=== PATIENT | male | born 1985 | race Caucasian/White ===

== ENCOUNTER 2024-01-29 12:50 | Outpatient (CLI) | payer OTHER, SELFPAY | END 2024-01-29 12:51 | disposition home or self-care (01) | PROVIDERS: PCP Family Medicine; Visit Provider Family Medicine | DX: R10.9 Unspecified abdominal pain (principal) | CPT/HCPCS: 80053; 80061; 83690 ==

== ENCOUNTER 2024-02-06 07:23 | Outpatient (CLI) | payer OTHER, SELFPAY ==
--- NOTE | 2024-02-06 08:00 | CT_ITS ---
Patient: KINDRA CASSIDY Facility:?[facility] Patient ID:?[id number] Site Patient ID:?[id number] Site :?[id number] Study:?CT-Abdomen/Pelvis W/ 101CC ISOVUE 370-02/06/2024 8:03:24 AM Ordering Physician:HEENA Final Report: INDICATION: Abdominal pain TECHNIQUE: Axial images were obtained from the diaphragm to the pubic symphysis. Reformats were obtained in the coronal and sagittal plane. IV Contrast: 101 cc Isovue 370 Oral Contrast: None COMPARISON: None. FINDINGS: Lower chest: Unremarkable. Liver: Unremarkable. Normal in size and attenuation. No masses. Gallbladder and bile ducts: Unremarkable. No stones or inflammation. No biliary dilatation. Spleen: Unremarkable. Normal in size without mass. Pancreas: Unremarkable. No mass or inflammation. Adrenal glands: Unremarkable. No nodules. Kidneys: Unremarkable. No masses, stones, or hydronephrosis. Vasculature: Unremarkable. GI tract: The stomach is unremarkable. No dilated loops of large or small intestine. Moderate amount of stools in the colon. Appendix is unremarkable. Pelvis: Unremarkable. Bones: Degenerative disc disease L4-5 and L5-S1 with spondylolysis at L5 and 21 millimeter anterolisthesis of L5 on S1 IMPRESSION: 1. No dilated bowel or localized inflammation. 2. Spondylolysis at L5 with grade 2 anterolisthesis of L5 on S1 Please note that all CT scans at this facility use dose modulation, iterative reconstruction, and/or weight-based dosing when appropriate to reduce radiation dose to as low as reasonably achievable. Dictated by Monty He MD @ 02/06/2024 8:12:33 AM Signed by:?Monty He MD @02/06/2024 8:12:33 AM (Electronic Signature)
== END 2024-02-06 07:24 | disposition home or self-care (01) ==
LOC: CT 07:25
PROVIDERS: PCP Family Medicine; Visit Provider Family Medicine
DX: R10.9 Unspecified abdominal pain (principal); M47.896 Other spondylosis, lumbar region
CPT/HCPCS: 74177; Q9967

== ENCOUNTER 2024-04-13 13:46 | Emergency (ER) | payer OTHER, SELFPAY ==
[2024-04-13 13:55] VITALS: BP 143/90; PULSE 57; RESP 18; TEMP 36.5; O2SAT 97; BMI 24.3
--- NOTE | 2024-04-13 14:09 | CRLHL7_ITS ---
For Patients: As a result of the Century Cures Act, medical imaging exams and procedure reports are released immediately into your electronic medical record. You may view this report before your referring provider. If you have questions, please contact your health care provider. INDICATION: Intermittent LT chest wall and upper LT side pain that radiates to back, dizzy, nauseated, more painful after eating. Patient states he was driving about 1100 this AM and almost passed out. TECHNIQUE: CT chest, abdomen and pelvis acquired with 100 milliliters of Isovue 370 IV contrast. COMPARISON: February 06, 2024 FINDINGS: CHEST: Cardiovascular structures: Heart size is normal. Thoracic aorta and main pulmonary artery are normal in caliber. Mediastinum and paulo: No mass or adenopathy. Lungs and pleura: Lungs and pleural spaces are clear. No suspicious nodules, infiltrates, or effusions. Chest wall and axilla: No mass or adenopathy. Bones: No suspicious bone lesions. Unremarkable for age. ABDOMEN AND PELVIS: Liver: Unremarkable. Gallbladder and bile ducts: Gallbladder is collapsed. No radiopaque gallstones identified. No intra or extrahepatic biliary ductal dilatation. Pancreas: Unremarkable. Spleen: Unremarkable. Adrenal glands: Unremarkable. Kidneys: Unremarkable. GI tract: No bowel obstruction. Appendix is within normal limits. Vascular structures: Unremarkable. Lymph nodes: Unremarkable. Miscellaneous: Unremarkable. No free air or significant free fluid. Pelvic Organs: Unremarkable. Bones: Redemonstrated bilateral L5 spondylolysis. Grade 2 anterolisthesis of L5 on S1 with resulting neural foraminal narrowing bilaterally at this level. IMPRESSION: 1. no acute process in the chest, abdomen or pelvis. 2. Stable grade 2 anterolisthesis of L5 on S1. Please note that all CT scans at this facility use dose modulation, iterative reconstruction, and/or weight-based dosing when appropriate to reduce radiation dose to as low as reasonably achievable. Dictated by Юлия Abebe MD @ 04/13/2024 3:29:27 PM (Electronically Signed)
--- NOTE | 2024-04-13 14:15 | ED_ITS ---
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 He got home and felt better he talked to his and they decided to come to the ER for evaluation. He had similar symptoms a couple months ago and he had a CT scan of his abdomen pelvis that was unremarkable. He has had some low lab work that is been unremarkable. He has recently undergone some physical therapy for a lumbar spondylolisthesis that he is doing very well with his back pain is pretty much resolved. 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 He does report sometimes some discomfort that increases in his left side when he eats. He has tried some Prilosec and that has not helped a whole lot. He does report that he drank about 6 beers last night. He has been not drinking due to his stomach upset. Symptoms seem worse today. He does not drive describe central chest discomfort like esophagitis. Dr. Rodriguez has referred him to GI for colonoscopy and probably EGD. He has appoint with them next week. Related Data Previous Rx's ?Medication ?Instructions ?Recorded celecoxib 200 mg capsule (Celebrex) 200 mg PO DAILY 7 days #14 caps 04/13/24 omeprazole 20 mg capsule,delayed 20 mg PO DAILY #14 caps 04/13/24 release Allergies Allergy/AdvReac Type Severity Reaction Status Date / Time amoxicillin Allergy Intermediate Rash Verified 04/13/24 15:16 Review of Systems Status of ROS: Reports: 6 or more systems reviewed and unremarkable except as noted in History and below PFSH PFS Social History Smoking Status: Former smoker What tobacco products do you use: cigarettes Smoking quit date/years: <= 15 years ago Do you use any of these nicotine containing products: None Second hand tobacco smoke exposure: No How often do you have a drink containing alcohol: 4 or more times a week How many standard drinks containing alcohol do you have on a typical day: 7 to 9 How often do you have six or more drinks on one occasion: Weekly AUDIT-C Alcohol total score: 10 Non-prescribed substance use: denies use Little interest or pleasure in doing things: not at all Feeling down, depressed, or hopeless: not at all Exam Narrative: Exam Narrative: Objective: Patient's vital signs look within normal limits He is alert or x3 noncyanotic He is cooperative pleasant His lungs are clear There is some mild costochondral tenderness along the lower left ribcage area. Abdomen is benign no masses no swelling no prominent aortic pulsation Bowel sounds normoactive Extremities no within normal limits, good perfusion, normal strength sensation He denies back pain Const: Vital Signs, click to edit/add: Vital Signs - 24 hr 04/13/24 13:55 04/13/24 14:24 04/13/24 15:45 Temperature 97.7 F Pulse Rate [Pulse Oximeter] 57 L 57 L Respiratory Rate 18 16 Blood Pressure [Ri ght Upper Arm] 143/90 H 115/67 Pulse Oximetry 97 98 97 Oxygen Delivery Me thod Room Air Room Air Course Vital Signs Vital signs: Initial Vital Signs Temperature 97.7 F 04/13/24 13:55 Temperature Source Temporal Artery Scan 04/13/24 13:55 Pulse Rate 57 L 04/13/24 13:55 Pulse Rhythm Regular 04/13/24 13:55 Respiratory Rate 18 04/13/24 13:55 Blood Pressure 143/90 H 04/13/24 13:55 Blood Pressure Mean 107 H 04/13/24 13:55 Blood Pressure Position Sitting 04/13/24 13:55 Pulse Oximetry 97 04/13/24 13:55 Oxygen Delivery Method Room Air 04/13/24 13:55 Vital Signs Temperature 97.7 F 04/13/24 13:55 Pulse Rate 57 L 04/13/24 13:55 Respiratory Rate 18 04/13/24 13:55 Blood Pressure 143/90 H 04/13/24 13:55 Pulse Oximetry 97 04/13/24 13:55 Oxygen Delivery Method Room Air 04/13/24 13:55 Temperature 97.7 F 04/13/24 13:55 Pulse Rate 57 L 04/13/24 15:45 Respiratory Rate 16 04/13/24 15:45 Blood Pressure 115/67 04/13/24 15:45 Pulse Oximetry 97 04/13/24 15:45 Oxygen Delivery Method Room Air 04/13/24 15:45 Medications Administered Medications: Discontinued Medications Generic Name Dose Route Start Last Admin Trade Name Harry RDZ Reason Stop Dose Admin Aspirin 324 mg 04/13/24 14:09 04/13/24 14:30 Aspirin 81 Mg Tab.Chew PO 04/13/24 14:10 324 mg ONCE ONE Administration Medical Decision Making MDM Narrative Medical decision making narrative: 38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 Symptoms have resolved now. He felt a little diaphoretic during this episode. This does not sound like coronary disease but I think an EKG and a troponin be appropriate, would also check as CT scan of his chest and abdomen given this has been recurrent over about 3 months. Does not sound like it is related to his back pain that he was having earlier. Will also check electrolytes labs make sure does not have any evidence of pancreatitis given his alcohol intake last night. If his CT scan of chest/abdomen/pelvis are unremarkable, and labs return normal. I think continuing the omeprazole and following up with GI would be the appropriate course of action, avoidance of alcohol. Please see addendum dictation. Will also get laboratory studies. Addendum 3:37 p.m.: The patient is EKG shows sinus bradycardia by my read no acute ST T wave changes, his chest abdomen pelvis CT is again unremarkable. His laboratory studies look reassuring, his troponin is 0, hemoglobin and white count normal his ER profile is largely unremarkable LFTs normal. I would have him continue his omeprazole, avoid alcohol, and continue with his GI planned follow-up. Recheck with primary care within the next week or so, would recommend follow up GI as planned. Return to ED as needed. I think it is also reasonable for him given this seems like a chest wall discomfort rather than GI says problem, to continue omeprazole but also try the Celebrex that was prescribed for him for his back 1 a day for the next week to see if it would relieve some of his symptoms. Lab Data Labs: Lab Results 04/13/24 04/13/24 Range/Units 14:23 14:42 WBC 7.61 (4.50-11.00) K/uL RBC 4.68 (4.30-5.90) m/uL Hgb 13.4 L (13.5-17.5) gm/dL Hct 40.8 (37.0-53.0) % MCV 87 (80-100) fL MCH 29 (26-34) pg MCHC 33 (32-36) gm/dL RDW Coeff of Ashley 12.6 (11.5-15.5) % Plt Count 259 (140-440) K/uL Neut % (Auto) 58.3 (42.0-72.0) % Lymph % (Auto) 33.2 (20-44) % [place] % (Auto) 7.0 (0.0-11.0) % Eos % (Auto) 0.4 (0.0-7.0) % Baso % (Auto) 0.4 (0.0-3.0) % Neut # (Auto) 4.44 (1.7-7.0) K/uL Lymph # (Auto) 2.53 (0.90-2.90) K/uL [place] # (Auto) 0.50 (0.00-0.90) K/UL Eos # (Auto) 0.03 (0.00-0.50) K/uL Baso # (Auto) 0.03 (0.00-0.30) K/uL Abs Immat Gran (auto) 0.05 (0.00-0.30) K/uL Imm/Tot Granulo (auto) 0.7 % Sodium 136 (135-149) mmol/L Potassium 4.1 (3.6-5.1) mmol/L Chloride 103 (96-114) mmol/L Carbon Dioxide 28 (20-32) mmol/L Anion Gap 5 L (7-15) mEq/L BUN 21 (5-24) mg/dL Creatinine 1.0 (0.5-1.5) mg/dL Estimated Creat Clear 124.99 Estimated GFR 98 ml/min Glucose 83 (60-115) mg/dL Calcium 8.4 (8.4-10.6) mg/dL Total Bilirubin 0.7 (0.1-1.5) mg/dL Direct Bilirubin 0.4 (0.0-0.5) mg/dL AST 37 H (12-35) U/L ALT 33 (4-50) U/L Alkaline Phosphatase 67 (40-150) U/L C-Reactive Protein < 0.5 L (0.5-1.0) mg/dL Total Protein 6.9 (6.0-8.3) g/dL Albumin 4.3 (3.3-5.0) g/dL Lipase 106 (23-300) U/L POC Troponin I 0.00 L (0.01-0.04) ng/ml Discharge Plan Discharge Clinical Impression: Left-sided chest wall pain Patient Disposition: Home, Self-Care Condition: Stable Additional Instructions: Light activity for 48 hours, recheck with GI as planned, continue omeprazole for stomach upset, avoid alcohol, drink lots of fluids. Would recommend recheck with your regular doctor after her GI appointment. Could also try the Celebrex 1 daily for the next week Activity Level: Light activity Discharge Diet: Regular Prescriptions: New omeprazole 20 mg capsule,delayed release(DR/EC) 20 mg PO DAILY Qty: 14 2RF celecoxib [Celebrex] 200 mg capsule 200 mg PO DAILY 7 Days Qty: 14 0RF Follow Up/Referrals: Nilson Bourgeois MD [Primary Care Provider] - Stand Alone Forms: [employer] Info Instructions
[2024-04-13 14:24] VITALS: O2SAT 98
[2024-04-13] MEDS: ASPIRIN 81 MG TAB.CHEW 324 MG PO (14:30)
[2024-04-13 14:44] LABS: Basophils Absolute Auto 0.03 K/uL (0.00-0.30); Basophils Percent Auto 0.4 % (0.0-3.0); Eosinophils Absolute Auto 0.03 K/uL (0.00-0.50); Eosinophils Percent Auto 0.4 % (0.0-7.0); Hematocrit 40.8 % (37.0-53.0); Hemoglobin* 13.4 gm/dL (13.5-17.5); Immature Granulocytes Abs Auto 0.05 K/uL (0.00-0.30); Immature Granulocytes Pct Auto 0.7 %; Lymphocytes Absolute Auto 2.53 K/uL (0.90-2.90); Lymphocytes Percent Auto 33.2 % (20-44); Mean Corpuscular HGB Conc 33 gm/dL (32-36); Mean Corpuscular Hemoglobin 29 pg (26-34); Mean Corpuscular Volume 87 fL (80-100); Neutrophils Absolute Auto 4.44 K/uL (1.7-7.0); Neutrophils Percent Auto 58.3 % (42.0-72.0); Platelet Count* 259 K/uL (140-440); RDW Coefficient of Variation % 12.6 % (11.5-15.5); Red Blood Count 4.68 m/uL (4.30-5.90); White Blood Count* 7.61 K/uL (4.50-11.00)
[2024-04-13 14:47] LABS: Slide Review Reflex No
[2024-04-13 14:57] LABS: Albumin* 4.3 g/dL (3.3-5.0); Chloride* 103 mmol/L (96-114); Sodium* 136 mmol/L (135-149)
[2024-04-13 14:58] LABS: Potassium* 4.1 mmol/L (3.6-5.1)
[2024-04-13 15:01] LABS: Alanine Aminotransferase* 33 U/L (4-50); Alkaline Phosphatase* 67 U/L (40-150); Anion Gap 5 mEq/L (7-15); Aspartate Amino Transferase* 37 U/L (12-35); Bilirubin Direct* 0.4 mg/dL (0.0-0.5); Bilirubin Total* 0.7 mg/dL (0.1-1.5); Blood Urea Nitrogen* 21 mg/dL (5-24); Calcium* 8.4 mg/dL (8.4-10.6); Carbon Dioxide* 28 mmol/L (20-32); Est. Creatinine Clearance* 124.99; Estimated Glomerular Filt Rate 98 ml/min; Glucose* 83 mg/dL (60-115); Lipase* 106 U/L (23-300); Total Protein* 6.9 g/dL (6.0-8.3)
[2024-04-13 15:04] LABS: C Reactive Protein* < 0.5 mg/dL (0.5-1.0)
[2024-04-13 15:45] VITALS: BP 115/67; PULSE 57; RESP 16; O2SAT 97
== END 2024-04-13 15:46 | disposition home or self-care (01) ==
PROVIDERS: Emergency Provider Family Medicine; PCP Family Medicine
DX: R07.89 Other chest pain (principal)
CPT/HCPCS: 36415; 71260; 74177; 80048; 80076; 83690; 84484; 85025; 86140; 93005; 94761; 99283; 99285; A9270; Q9967

== ENCOUNTER 2024-04-29 14:30 | Outpatient (RCR) | payer OTHER, SELFPAY | END 2024-07-30 11:40 | disposition home or self-care (01) | PROVIDERS: PCP Family Medicine; Visit Provider Family Medicine | DX: M43.10 Spondylolisthesis, site unspecified (principal); Z51.89 Encounter for other specified aftercare | CPT/HCPCS: 97110; 97140; 97161 ==

== ENCOUNTER 2024-07-28 08:40 | Emergency (ER) | payer OTHER, SELFPAY ==
[2024-07-28 08:48] VITALS: BP 123/89; PULSE 69; RESP 20; TEMP 36.7; O2SAT 97; BMI 23.7
--- NOTE | 2024-07-28 08:55 | ED_ITS ---
HPI - General Adult General Time Seen by Provider: 08:55 Chief complaint: Abdominal Pain Stated complaint: back/stomach x 3 days Time Seen by Provider: 07/28/24 08:42 History of Present Illness HPI narrative: Chavez is a 39-year-old male with spondylolisthesis, presents emerged department via private car and self with lower back pain and abdominal pain. Patient states he has had this in the past, he would was evaluated for it in the emergency department and had imaging done at that time, they showed spondylolisthesis, was discharged with some anti-inflammatory medication and improved, he says that since last Sunday. Pain is lower lumbar area bilatera l, no radiation down the legs, denies any urinary bowel incontinence or retention. Patient states he has a little bit tingling when he urinates, denies any blood in the urine. The lower abdominal pain is crampy in nature left- sided. Associated nausea but no vomiting denies any diarrhea but had some blood in the stool last week when he wiped, bright red. No history of any hemorrhoids. Denies any chest pain or shortness of breath. No recent injury, however he did sleep around 10 hours yesterday. No fevers or chills. Pain is 6/10. Patient did not take anything for the pain, patient states he has had a lot of anxiety recently which could be contributing, with work and at home. Patient was seen by [facility] they recommended no upper endoscopy or colonoscopy at that time. Patient has had a CT abdomen pelvis with IV contrast last April which was normal. Related Data Previous Rx's ?Medication ?Instructions ?Recorded diazepam 5 mg tablet (Valium) 5 mg PO Q8H PRN #7 tabs 07/28/24 naproxen 500 mg tablet 500 mg PO BID #14 tabs 07/28/24 Allergies Allergy/AdvReac Type Severity Reaction Status Date / Time amoxicillin Allergy Intermediate Rash Verified 07/28/24 08:55 Review of Systems Status of ROS: Reports: 10 or more systems reviewed and unremarkable except as noted in History and below PFSH PFS Social History Smoking Status: Former smoker What tobacco products do you use: cigarettes Smoking quit date/years: <= 15 years ago Do you use any of these nicotine containing products: None Second hand tobacco smoke exposure: No How often do you have a drink containing alcohol: 4 or more times a week How many standard drinks containing alcohol do you have on a typical day: 7 to 9 How often do you have six or more drinks on one occasion: Weekly AUDIT-C Alcohol total score: 10 Non-prescribed substance use: denies use Little interest or pleasure in doing things: not at all Feeling down, depressed, or hopeless: not at all Exam Narrative: Exam Narrative: General: No obvious distress lying comfortably HEENT: Pupils equal round reactive to light, extraocular muscles intact Lungs: Clear to auscultation bilaterally Chest: Normal sinus rhythm S1-S2 Abdomen: Soft, nontender to palpation bowel sounds positive Muscle skeletal: Mild tenderness to palpation the lower lumbar paraspinal musculature, no midline tenderness step-offs, straight leg raise and crossover negative at 20? Neuro: GCS 15 Const: Vital Signs, click to edit/add: Vital Signs - 24 hr 07/28/24 08:48 Temperature 98.1 F Pulse Rate [Right Pulse Oximeter] 69 Respiratory Rate 20 Blood Pressure [Ri ght Upper Arm] 123/89 Pulse Oximetry 97 Oxygen Delivery Me thod Room Air Course Course ED Course: 8:45 AM: AIDET performed, workup will include IV peripheral, 0.9 normal saline bolus, 15 mg IV Toradol, will obtain CBC, CMP, lipase, CRP and urinalysis. Differential includes but not limited to appendicitis, aortic aneurysm, mesentery ischemia, bowel perforation or obstruction, other considerations are anxiety, GERD, diverticulitis, pyelonephritis, UTI, urolithiasis, as well as all etiologies. Symptoms seem more related to anxiety, will await for labs results to see if further imaging will be obtained. Reevaluation(s) Time of Reevaluation #1: 10:17 Reevaluation #1: CBC showed no leukocytosis, no anemia, comprehensive metabolic panel showed normal electrolytes and renal function, LFTs, urinalysis was unremarkable, CRP was negative, patient was given additional 2.5 mg IV Valium for his lower back spasms and anxiety as symptoms improve, discussed further imaging but will hold at this time, the patient has had recent CT scans which were unremarkable, will plan to treat symptomatically have a follow-up with primary care provider over the next 7-10 days. Return precautions given. Vital Signs Vital signs: Initial Vital Signs Temperature 98.1 F 09/23/24 08:48 Temperature Source Temporal Artery Scan 07/28/24 08:48 Pulse Rate 69 07/28/24 08:48 Pulse Rhythm Regular 07/28/24 08:48 Respiratory Rate 20 07/28/24 08:48 Blood Pressure 123/89 07/28/24 08:48 Blood Pressure Mean 100 07/28/24 08:48 Blood Pressure Position Sitting 07/28/24 08:48 Pulse Oximetry 97 07/28/24 08:48 Oxygen Delivery Method Room Air 07/28/24 08:48 Vital Signs Temperature 98.1 F 07/28/24 08:48 Pulse Rate 69 07/28/24 08:48 Respiratory Rate 20 07/28/24 08:48 Blood Pressure 123/89 07/28/24 08:48 Pulse Oximetry 97 07/28/24 08:48 Oxygen Delivery Method Room Air 07/28/24 08:48 Temperature 98.1 F 07/28/24 08:48 Pulse Rate 69 07/28/24 08:48 Respiratory Rate 20 07/28/24 08:48 Blood Pressure 123/89 07/28/24 08:48 Pulse Oximetry 97 07/28/24 08:48 Oxygen Delivery Method Room Air 07/28/24 08:48 Medications Administered Medications: Discontinued Medications Generic Name Dose Route Start Last Admin Trade Name Harry PRN Reason Stop Dose Admin Diazepam 2.5 mg 07/28/24 09:49 07/28/24 09:58 Diazepam 5 Mg/Ml Inj IV 07/28/24 09:50 2.5 mg ONCE ONE Administration Sodium Chloride 1,000 mls @ 1,000 mls/hr 07/28/24 08:54 07/28/24 10:06 0.9 % Sodium Chloride 1000 Ml IV 07/28/24 09:53 Infused .Q1H VU Infusion Ketorolac Tromethamine 15 mg 07/28/24 08:54 07/28/24 09:10 Ketorolac 15 Mg/Ml Inj IVP 07/28/24 08:55 15 mg ONCE ONE Administration Medical Decision Making Lab Data Labs: Lab Results 07/28/24 07/28/24 Range/Units 08:42 09:10 WBC 5.47 (4.50-11.00) K/uL RBC 5.10 (4.30-5.90) m/uL Hgb 14.7 (13.5-17.5) gm/dL Hct 44.5 (37.0-53.0) % MCV 87 (80-100) fL MCH 29 (26-34) pg MCHC 33 (32-36) gm/dL RDW Coeff of Ashley 12.3 (11.5-15.5) % Plt Count 240 (140-440) K/uL Neut % (Auto) 43.9 (42.0-72.0) % Lymph % (Auto) 46.4 H (20-44) % Giles % (Auto) 8.6 (0.0-11.0) % Eos % (Auto) 0.5 (0.0-7.0) % Baso % (Auto) 0.4 (0.0-3.0) % Neut # (Auto) 2.40 (1.7-7.0) K/uL Lymph # (Auto) 2.50 (0.90-2.90) K/uL Giles # (Auto) 0.50 (0.00-0.90) K/UL Eos # (Auto) 0.03 (0.00-0.50) K/uL Baso # (Auto) 0.02 (0.00-0.30) K/uL Abs Immat Gran (auto) 0.01 (0.00-0.30) K/uL Imm/Tot Granulo (auto) 0.2 % Sodium 138 (135-149) mmol/L Potassium 3.8 (3.6-5.1) mmol/L Chloride 102 (96-114) mmol/L Carbon Dioxide 26 (20-32) mmol/L Anion Gap 10 (7-15) mEq/L BUN 9 (5-24) mg/dL Creatinine 0.8 (0.5-1.5) mg/dL Estimated Creat Clear 154.69 Estimated GFR 115 ml/min Glucose 92 (60-115) mg/dL Calcium 9.5 (8.4-10.6) mg/dL Total Bilirubin 0.9 (0.1-1.5) mg/dL AST 31 (12-35) U/L ALT 18 (4-50) U/L Alkaline Phosphatase 51 (40-150) U/L C-Reactive Protein < 0.5 L (0.5-1.0) mg/dL Total Protein 7.8 (6.0-8.3) g/dL Albumin 5.1 H (3.3-5.0) g/dL Lipase 62 (23-300) U/L Urine Color Yellow (Yellow) Urine Appearance Clear (Clear) Urine pH 7.0 (5.0-8.5) Ur Specific [place] 1.015 (1.000-1.030) Urine Protein Negative (Negative) Urine Glucose (UA) Negative (Negative) Urine Ketones Negative (Negative) Urine Blood Negative (Negative) Urine Nitrite Negative (Negative) Urine Bilirubin Negative (Negative) Urine Urobilinogen 0.2 (0.2-1.0) Ur Leukocyte Esterase Negative (Negative) Discharge Plan Discharge Clinical Impression: Lower back pain, Abdominal pain, lower Patient Disposition: Home, Self-Care Instructions: Acute Low Back Pain (ED), Abdominal Pain (ED) Additional Instructions: To take Naproxen 500 mg twice daily for 7 days, add valium 5 mg every 6 hours for inceased anxiety/lower back spasms, to follow-up with primary care provider over the next 7-10 days for additional workup. Activity Level: No Restrictions Prescriptions: New naproxen 500 mg tablet 500 mg PO BID Qty: 14 2RF diazepam [Valium] 5 mg tablet 5 mg PO Q8H PRNQty: 7 0RF Follow Up/Referrals: Nilson Bourgeois MD [Primary Care Provider] - Stand Alone Forms: [employer] Info Instructions
[2024-07-28] MEDS: 0.9 % SODIUM CHLORIDE 1000 ml 1,000 ML IV (09:05)
[2024-07-28] MEDS: KETOROLAC 15 MG/ML inj IVP (09:10)
[2024-07-28 09:28] LABS: Appearance Urine Clear (Clear); Bilirubin Urine Negative (Negative); Blood Urine Negative (Negative); Color Urine Yellow (Yellow); Glucose Urine Negative (Negative); Ketones Urine Negative (Negative); Leukocyte Esterase Urine Negative (Negative); Nitrite Urine Negative (Negative); Protein Urine Negative (Negative); Specific Gravity Urine 1.015 (1.000-1.030); Urobilinogen Urine 0.2 (0.2-1.0)
[2024-07-28 09:30] LABS: Basophils Absolute Auto 0.02 K/uL (0.00-0.30); Basophils Percent Auto 0.4 % (0.0-3.0); Eosinophils Absolute Auto 0.03 K/uL (0.00-0.50); Eosinophils Percent Auto 0.5 % (0.0-7.0); Hematocrit 44.5 % (37.0-53.0); Hemoglobin* 14.7 gm/dL (13.5-17.5); Immature Granulocytes Abs Auto 0.01 K/uL (0.00-0.30); Immature Granulocytes Pct Auto 0.2 %; Lymphocytes Percent Auto 46.4 % (20-44); Mean Corpuscular HGB Conc 33 gm/dL (32-36); Mean Corpuscular Hemoglobin 29 pg (26-34); Mean Corpuscular Volume 87 fL (80-100); Monocytes Percent Auto 8.6 % (0.0-11.0); Neutrophils Percent Auto 43.9 % (42.0-72.0); Platelet Count* 240 K/uL (140-440); RDW Coefficient of Variation % 12.3 % (11.5-15.5); White Blood Count* 5.47 K/uL (4.50-11.00)
[2024-07-28 09:32] LABS: Slide Review Reflex No
[2024-07-28 09:49] LABS: Albumin* 5.1 g/dL (3.3-5.0); Chloride* 102 mmol/L (96-114); Potassium* 3.8 mmol/L (3.6-5.1); Sodium* 138 mmol/L (135-149)
[2024-07-28 09:51] LABS: Bilirubin Total* 0.9 mg/dL (0.1-1.5); Creatinine* 0.8 mg/dL (0.5-1.5); Est. Creatinine Clearance* 154.69; Estimated Glomerular Filt Rate 115 ml/min
[2024-07-28 09:52] LABS: Alanine Aminotransferase* 18 U/L (4-50); Alkaline Phosphatase* 51 U/L (40-150); Anion Gap 10 mEq/L (7-15); Aspartate Amino Transferase* 31 U/L (12-35); Blood Urea Nitrogen* 9 mg/dL (5-24); Carbon Dioxide* 26 mmol/L (20-32); Glucose* 92 mg/dL (60-115); Lipase* 62 U/L (23-300); Total Protein* 7.8 g/dL (6.0-8.3)
[2024-07-28 09:53] LABS: Calcium* 9.5 mg/dL (8.4-10.6)
[2024-07-28] MEDS: diazePAM 5 MG/ML inj 2.5 MG IV (09:58)
[2024-07-28 10:04] LABS: C Reactive Protein* < 0.5 mg/dL (0.5-1.0)
--- NOTE | 2024-07-28 10:44 | ED.NURSE ---
Pt educated on waiting in the ER for an hour before driving home after being given Valium. Pt states understanding.
--- NOTE | 2024-07-28 11:29 | ED.NURSE ---
Pt walking well after Valium, is discharging at this time.
== END 2024-07-28 11:30 | disposition home or self-care (01) ==
PROVIDERS: Emergency Provider Student in an Organized Health Care Education/Training Program; PCP Family Medicine
DX: M54.50 Low back pain, unspecified (principal); R10.30 Lower abdominal pain, unspecified
CPT/HCPCS: 36415; 80053; 81003; 83690; 85025; 86140; 96374; 96375; 99283; J1885; J3360; J7030

== ENCOUNTER 2024-07-31 14:49 | Outpatient (RCR) | payer OTHER, SELFPAY ==
--- NOTE | 2024-08-01 08:20 | PT.OPE ---
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 - Chronic deformity of the S1 vertebral body with endplate sclerosis at the superior aspect and prominent anterior spur formation. - No vertebral body compression fracture. - SI joints maintained. Referring Nilson Rios MD Subjective Preferred Name Ahmet Gavino Pt presents with complaints of low back pain and lower abdominal pain. Pt does have diagnosis of Grade II spondylolisthesis of L5 on S1. Pt visited [facility] on with complaints of back and abdominal pain. Pt also visited his PCP yesterday to discuss his anxiety as well as to get referral for PT for low back pain. Last Sunday pain started. 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 Had been painting some higher hernandez at the time. Pt reports having trouble sleeping now due to pain and lack of ability to find a comfortable position. Pts abdominal pain has come and gone and is mostly in the L lower quadrant. 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 Precautions Therapy Limitations/Systems Review Not Limited Objective Other/Pertinent Objective Lumbar ROM Extension - cannot extend beyond neutral in standing without pain Flexion - can reach several inches beyond B knees; feels tension behind B knees R/L Side Bend - no limitations R/L Rotation - no limitations; and and muscle spasm noted with rotation to L R Hip ROM Flexion - 120 IR/ER - 25/40 Extension - 5 L Hip ROM Flexion - 120 IR/ER - 30/40 Extension - 5 R knee ROM - 5-0-135 L knee ROM - 5-0-135 R Hip Strength Flexion - 5/5 MMT Abduction - 4+/5 MMT Adduction - 4+/5 MMT IR - 5/5 MMT ER - 5/5 MMT Extension - 5/5 MMT L Hip Strength Flexion - 5/5 MMT Abduction - 4+/5 MMT Adduction - 4+/5 MMT IR - 5/5 MMT ER - 5/5 MMT Extension - 5/5 MMT R knee Extension - 5/5 MMT R Knee Flexion - 5/5 MMT L knee Extension - 5/5 MMT L knee Flexion - 5/5 MMT R ankle DF - 5/5 MMT L ankle DF - 5/5 MMT Palpation: pt reports pain/ tenderness with palpation to L iliacus, L rectus femoris Gait: no deviations noted Special Testing Slump: negative SLR: negative Nereida's: positive R > L Hamstring: positive B Pelvis: relatively level Functional Test Performed & Score Oswestry Disability Index: 20% , minimal disability Assessment Assessment/Impression Ahmet is a very pleasant 39 year old male who presents to our clinic for evaluation and treatment of low back pain. Pt also complains of abdominal pain that has fluctuated over the past 6 months or so. His abdominal pain is primarily of the L lower quadrant. Pt does have history of grade II spondylolisthesis at L5 level. I do feel that Ahmet's lower back pain is a result of irritation of his spondylolisthesis likely exacerbated by his recent work schedule which required painting many high hernandez. Pt and I have agreed to continue working on core strength and spine mobility as this was especially helpful for him in his last bout of PT. In regard to Ahmet's abdominal pain, I am not certain of the cause. He does present with significant anterior hip and thigh tightness but not to the degree that i would expect any referred pain from his iliopsoas. Upon palpation, he reports pain along the region of his descending large colon. As he has a history of abdominal pain and some GI issues including presence of bright red blood with wiping after a BM, I do have some concern for development of ulcerative colitis, but was very candid with Ahmet today that this is not my specialty and should direct questions of this nature to his PCP or [facility], whom he has formerly consulted with. Over the next few weeks, Ahmet and I have agreed to focus on reducing anterior hip and thigh tightness as well as maintaining his spine mobility and core strength. If pts symptoms persist beyond 3-4 weeks, I would recommend that he consult with one of our visceral mobilization therapists or return to [facility] for further investigation. The nature of the pts condition was explained and all questions were answered to the pts satisfaction. Skilled PT services are medically necessary to address deficits and return patient to highest level of function. Recommend physical therapy sessions 1/ week for 4 weeks. Pt agrees with this plan. Printout of HEP was given for I completion and pt gives verbal understanding of each exercise . Primary Functional Limitations Sleeping, sitting, lifting Plan of Care Rehabilitation Potential Good Physical Therapy Goals STG - To be completed in 2-3 weeks: 1. Pt will report reduction in back pain by factor of 2 so that they may perform all ADLs with tolerable level of pain. 2. Pt will demonstrate ability to perform pelvic tilt with good coordination as indication of appropriate firing of pelvic and lumbar stabilizing muscles to provide greater support for pelvis and lumbar spine. 3. Pt will demonstrate 5/5 MMT for all LE motions without reproduction of pain to provide greater support to pelvis and lumbar spine. LTG - To be completed in 4 weeks: 1. Pt to be I with HEP so that they may I manage progression of symptoms. 2. Pt will report ability to sleep through the night without waking due to pain so that they may wake well rested with reduced mental fatigue during working hours. 3. 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 Treatment Plan/Direct Interventions Electrical Stimulation,Heat, Ice/Cold/Vasopneumatic,Joint Mobilization,Manual Therapy, Neuromuscular Re-ed,Self-Care/ Home Management,Therapeutic Activities,Therapeutic Exercises Frequency/Duration 1/week for 4 weeks Patient Will Be Discharged From Therapy Completion of LTG(s),Skills Plateau,Independent w/HEP, Independently Progressing Evaluation Billing Untimed Code Treatment Minutes 40 PT Eval No Charge No Complexity Low Certification Information Initial Certification Date 08/01/24 Ending Certification Date 10/30/24 Provider Signature Required Communication Only-No Signature Required
== END 2024-11-28 23:59 | disposition home or self-care (01) ==
PROVIDERS: PCP Family Medicine; Visit Provider Family Medicine
DX: M54.50 Low back pain, unspecified (principal); M43.10 Spondylolisthesis, site unspecified; Z51.89 Encounter for other specified aftercare
CPT/HCPCS: 97032; 97140; 97161

== ENCOUNTER 2024-08-07 08:28 | Outpatient (CLI) | payer OTHER, SELFPAY ==
[2024-08-07 16:34] LABS: Chlamydia DNA Amplified* NOT DETECTED (No Detected); GC DNA Amplified* NOT DETECTED (No Detected)
== END 2024-08-07 08:29 | disposition home or self-care (01) ==
PROVIDERS: PCP Family Medicine; Visit Provider Family Medicine
DX: R39.9 Unspecified symptoms and signs involving the genitourinary system (principal); R10.30 Lower abdominal pain, unspecified
CPT/HCPCS: 87491; 87591; G0103

== ENCOUNTER 2024-12-11 14:20 | Outpatient (CLI) | payer OTHER, SELFPAY | END 2024-12-11 14:21 | disposition home or self-care (01) | PROVIDERS: PCP Family Medicine; Visit Provider Family Medicine | DX: R10.9 Unspecified abdominal pain (principal); K90.9 Intestinal malabsorption, unspecified; L29.9 Pruritus, unspecified; R20.2 Paresthesia of skin | CPT/HCPCS: 80053; 80076; 82306; 82607; 86364 ==

== ENCOUNTER 2024-12-25 13:32 | Outpatient (CLI) | payer OTHER, SELFPAY | END 2024-12-25 13:33 | disposition home or self-care (01) | LOC: LKVREF 02-02 13:33 | PROVIDERS: PCP Family Medicine; Visit Provider Family Medicine | DX: R41.3 Other amnesia (principal); T78.1XXA Other adverse food reactions, not elsewhere classified, initial encounter | CPT/HCPCS: 82653 ==

== ENCOUNTER 2025-01-13 10:27 | Outpatient (CLI) | payer OTHER, SELFPAY ==
--- NOTE | 2025-01-13 11:00 | CRLHL7_ITS ---
For Patients: As a result of the Century Cures Act, medical imaging exams and procedure reports are released immediately into your electronic medical record. You may view this report before your referring provider. If you have questions, please contact your health care provider. Indication: abdominal pain Technique: CT Abdomen/Pelvis W/ ISOVUE 370 Please note that all CT scans at this facility use dose modulation, iterative reconstruction, and/or weight-based dosing when appropriate to reduce radiation dose to as low as reasonably achievable. Comparison: 04/13/24, 02/06/24 Findings: Lung bases are clear. Unremarkable liver with incidental focal fat deposition adjacent to the falciform ligament. The spleen is normal. The pancreas is normal. Incomplete distention of the gallbladder. No calcified gallstones. No biliary obstruction. Normal adrenal glands. Normal kidneys. The bladder is normal. Prostate is not enlarged. Normal appendix. No portal vein thrombosis. No adenopathy. No bowel obstruction, free air, free fluid or abscess. Chronic spondylolisthesis of L5 on S1 with severe degenerative disc disease. Impression: No acute intra-abdominal or intrapelvic pathology. Chronic changes at L5-S1 Please note that all CT scans at this facility use dose modulation, iterative reconstruction, and/or weight-based dosing when appropriate to reduce radiation dose to as low as reasonably achievable. Dictated by Jose Miguel Rivera MD @ 01/13/2025 11:37:15 AM (Electronically Signed)
== END 2025-01-13 10:28 | disposition home or self-care (01) ==
LOC: CT 10:27
PROVIDERS: PCP Family Medicine; Visit Provider Student in an Organized Health Care Education/Training Program
DX: R10.9 Unspecified abdominal pain (principal); M43.17 Spondylolisthesis, lumbosacral region
CPT/HCPCS: 74177; Q9967

== ENCOUNTER 2025-08-24 08:36 | Outpatient (CLI) | payer OTHER, SELFPAY | END 2025-08-24 08:37 | disposition home or self-care (01) | LOC: NFLDREF 08-26 09:33 | PROVIDERS: PCP Family Medicine; Referring Provider Family Medicine; Visit Provider Family Medicine | DX: Z13.1 Encounter for screening for diabetes mellitus (principal); Z13.6 Encounter for screening for cardiovascular disorders | CPT/HCPCS: 80053; 80061 ==